=== PATIENT | male | born 1995 | race Hispanic/Latino ===

== ENCOUNTER 2019-09-13 16:07 | Emergency (ER) | payer OTHER ==
[~2019-09-13] VITALS: Ht 167.6 cm; Wt 82.6 kg
[2019-09-13] MEDS ORDERED: LIDOCAINE 1% W/EPINEPHRINE 20 ML VIAL ONE (16:24)
--- NOTE | 2019-09-13 16:30 | NUR ---
PTS CHIN LACERATION CLEANED AND 5 SUTURES PLACED WITH DERMABOND, PT TOLERATED WELL BLEEDING CONTROLLED, PT VOICES NO COMPLAINTS AT THIS TIME.
[2019-09-13] MEDS ORDERED: LIDOCAINE 1% W/EPINEPHRINE 20 ML VIAL INJ ONE (17:15)
== END 2019-09-13 17:03 | disposition home or self-care (01) ==
LOC: FSED 16:07
DX: S01.81XA Laceration without foreign body of other part of head, initial encounter (principal); W45.8XXA Other foreign body or object entering through skin, initial encounter; Y99.0 Civilian activity done for income or pay
CPT/HCPCS: 99283